=== PATIENT | male | born 1955 | race Hispanic/Latino ===

== ENCOUNTER 2024-12-22 06:36 | Day surgery (SDC) | payer MEDICARE ==
[2024-12-18 12:51] VITALS: BP 112/66; PULSE 63; RESP 18; TEMP 98.2
[2024-12-18 12:53] LABS: BASOPHILS # (AUTO) 0.02 K/uL (0.00-0.20); BASOPHILS % (AUTO) 0.3 % (0.0-5.0); EOSINOPHILS # (AUTO) 0.14 K/uL (0.00-0.70); EOSINOPHILS % (AUTO) 2.3 % (0.0-8.0); HEMATOCRIT 42.2 % (42-54); IMMATURE GRANULOCYTE ABSOLUTE 0.01 K/uL (0-1); LYMPHOCYTES # (AUTO) 1.1 K/uL (1.0-4.8); MEAN CORPUSCULAR HEMOGLOBIN 23.3 pg (27.0-33.0); MEAN CORPUSCULAR HGB CONC 30.6 g/dL (32.0-36.0); MEAN CORPUSCULAR VOLUME 76.3 fL (79-99); MONOCYTES # (AUTO) 0.5 K/uL (0.1-1.0); MONOCYTES % (AUTO) 7.5 % (3.0-13.0); NEUTROPHILS # (AUTO) 4.3 K/uL (1.8-7.7); NEUTROPHILS % (AUTO) 71.7 % (40.0-77.0); PLATELET COUNT (AUTO) 200 K/uL (130-400); RED BLOOD CELL COUNT(AUTO) 5.53 MIL/uL (4.50-6.20); RED CELL DISTRIBUTION WIDTH 18.6 % (11.0-15.5)
[2024-12-18 13:01] LABS: CREATININE 0.7 mg/dL (0.5-1.3); POTASSIUM 4.1 mmol/L (3.5-5.1)
[2024-12-18 13:09] LABS: INR 1.06 (0.85-1.15); PROTHROMBIN TIME 11.2 SEC (9.6-11.6)
[2024-12-18 13:10] LABS: PARTIAL THROMBOPLASTIN TIME 28.5 SEC (26.3-35.5)
[2024-12-22] VITALS (15 sets, daily range): BP systolic 110–126; BP diastolic 52–68; PULSE 41–66; RESP 16–18; TEMP 97.2–97.9
[~2024-12-22] VITALS: Ht 160 cm; Wt 54.2 kg
[2024-12-22] MEDS: BUPIvacaine/PF 0.25% 30ML VIAL IJ ONE
[2024-12-22] MEDS ORDERED: GABApentin 100 MG CAPSULE ONE (07:09)
[2024-12-22] MEDS ORDERED: acetaMINOPHEN 100 ML ONE (07:10)
[2024-12-22] MEDS ORDERED: FAMOTIDINE 20MG VIAL IV ONE (07:10)
[2024-12-22] MEDS: LACTATED RINGERS 1000ML 1,000 ML IV ONE (07:19)
[2024-12-22] MEDS: ceFAZolin SODIUM 2 GM VIAL ONE (07:19)
[2024-12-22] MEDS ORDERED: rocuRONium bROMide 10MG/1ML 5ML VL ONE (07:22)
[2024-12-22] MEDS ORDERED: LIDOCAINE PF 100MG/5ML (2%) SYRINGE 5ML ONE (07:22)
[2024-12-22] MEDS ORDERED: proPOFol 10 MG/ML 20ML VIAL IV ONE (07:22)
[2024-12-22] MEDS ORDERED: FENTanyl CITRate PF 50 MCG/1 ML 2ML VIAL ONE (07:22)
[2024-12-22] MEDS ORDERED: ketaMINE 50MG/ML SYRINGE 50 MG/ML DISP.SYRIN ONE (07:24)
[2024-12-22] MEDS ORDERED: BUPIvacaine/PF 0.25% 30ML VIAL IJ ONE ×2 (09:02→09:46)
[2024-12-22] MEDS ORDERED: dexaMETHasone SOD PHOSPHATE 10MG/ML 1ML VIAL ONE (09:44)
[2024-12-22] MEDS ORDERED: ondanSETRON 4MG INJ ONE (09:44)
[2024-12-22] MEDS ORDERED: LIDOCAINE HCL 1% 10 ML VIAL ONE (09:47)
[2024-12-22] MEDS ORDERED: GLYCOPYRROLATE 0.2 MG/ML 5 ML VIAL ONE (09:52)
[2024-12-22] MEDS ORDERED: NEOSTIGMINE METHYLSULFATE 1MG/ML IV ONE (09:52)
[2024-12-22] MEDS ORDERED: ePHEDrine SULFate 50 MG/ML AMPULE ONE (09:53)
--- NOTE | 2024-12-22 11:11 | OP ---
Operative Note: DATE OF PROCEDURE: 12/22/24 SURGEON: IESHA GALLO MD THIRD COOK: [] ANESTHESIA: [] General ANESTHESIOLOGIST/[employer]PER[employer]: [] PREOPERATIVE DIAGNOSIS: [] Right inguinal hernia POSTOPERATIVE DIAGNOSIS: [] The same SYNOPSIS: [] PROCEDURE: [] Robotic right inguinal hernia repair ESTIMATED BLOOD LOSS: [] None INDICATIONS: [] DESCRIPTION OF PROCEDURE: []With the patient prepped in usual fashion and a Coyne catheter placed we inserted the Veress needle in the left upper quadrant abdomen insufflated. Supraumbilical incision was created and a millimeter da Alexander trocar was inserted. Under direct vision I remove the needle and I placed 2 da Alexander trochars 1 in each the side of the abdomen. Then we placed the pa tient in Trendelenburg and I docked the robot. I went to the console and observe a right inguinal hernia. This seems to be of the indirect type. Using cautery I scored the peritoneum and I brought him down bluntly. I exposed the Donovan's ligament and the indirect area I reduce a large hernia sac preserving the spermatic cords and visualizing the vas deferens and spermatic cords. The hernia was reduced without any problems. After observing the myopectineal line and the Donovan's ligament I placed a 3 D MAX MId mid mesh on the right side. This was a large one. I placed it over the Donovan's ligament covering couple centimeters below and the indirect space. The sac with the lipoma was placed over the mesh. I then closed the peritoneum with a 2 oh V-Loc. No anchoring of the mesh was necessary. We did a closure continues and dropped the pressure to 8 cm. After this was done I remove the needle and I remove all the trochars under direct vision. The skin was closed with 4-0 Monocryl and Steri-Strips. We placed 20 cc IESHA GALLO MD December 22, 2024 11:10
[2024-12-22] MEDS: GLYCOPYRROLATE 0.2 MG/ML 5 ML VIAL ONE (11:43)
--- NOTE | 2024-12-22 12:39 | NUR ---
Full and complete discharge instructions given to Patient and Provider, Niyah both verbally and in writing. Explained SURGICAL procedure precautions and follow up. Bandaids x 4 dry and intact. All questions answered. PIV removed with catheter tip intact. Home with Provider, Niyah. W/C to POV.
== END 2024-12-22 12:43 | disposition home or self-care (01) ==
LOC: DAH 06:36
PROVIDERS: ATTEND Surgery
DX: K40.90 Unilateral inguinal hernia, without obstruction or gangrene, not specified as recurrent (principal); E78.00 Pure hypercholesterolemia, unspecified; F41.9 Anxiety disorder, unspecified; F32.A Depression, unspecified; Z79.899 Other long term (current) drug therapy; Z96.649 Presence of unspecified artificial hip joint; Z79.01 Long term (current) use of anticoagulants; Z86.2 Personal history of diseases of the blood and blood-forming organs and certain disorders involving the immune mechanism
CPT/HCPCS: 80048; 85025; 85610; 85730; 36415; 49650; A4663; J7030; A4344; A4215 ×2; J7120; J3490 ×7; J3010; J1100; J0665 ×3; J2003; J2704; J2405; J2710; J0690; C1781; A4223; A4222; A4221; A4450; A4600